=== PATIENT | female | born 1985 | race American Indian/Alaskan Native ===

== ENCOUNTER 2022-05-07 23:23 | Emergency (ER) | payer OTHER ==
[2022-05-08 01:57] VITALS: BP 118/64
[2022-05-08] MEDS ORDERED: ACETAMINOPHEN 500 MG TAB PO ONE (03:07)
[2022-05-08] MEDS ORDERED: IBUPROFEN 600 MG TAB PO ONE (03:07)
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
== END 2022-05-08 05:46 | disposition home or self-care (01) ==
LOC: ED 23:23
DX: S13.4XXA Sprain of ligaments of cervical spine, initial encounter (principal); S29.012A Strain of muscle and tendon of back wall of thorax, initial encounter; V89.2XXA Person injured in unspecified motor-vehicle accident, traffic, initial encounter; Y93.89 Activity, other specified; Y92.89 Other specified places as the place of occurrence of the external cause; Y99.8 Other external cause status; Z88.2 Allergy status to sulfonamides; J45.909 Unspecified asthma, uncomplicated
CPT/HCPCS: 70450; 72100; 72125; 99284